=== PATIENT | female | born 1980 | race Caucasian/White ===

== ENCOUNTER 2017-09-04 22:11 | Inpatient (IN) | payer MEDICARE ==
[2017-09-05] MEDS ORDERED: Insulin Regular 300 UNITS/3 ML VIAL ONE (00:35)
[2017-09-05] MEDS ORDERED: diphenhydrAMINE 50 MG/ML VIAL ONE (01:22)
[2017-09-05] MEDS ORDERED: Famotidine/PF 20 mg/2ml Vial ONE (01:22)
[2017-09-05] MEDS ORDERED: Dextrose 50% Abboject 50 ML SYRINGE SLOW IVP PRN ×2 (01:37→05:56)
[2017-09-05] MEDS ORDERED: Dextrose 5% in Water 1,000 ML IV PRN ×2 (01:37→05:56)
--- NOTE | 2017-09-05 02:39 | HP ---
CHIEF COMPLAINT: Throat swelling. HISTORY OF PRESENT ILLNESS: The patient is a 37-year-old female with known angioedema, questionable whether this is idiopathic versus hereditary. The patient presented to outlying ER with throat swell ing. The patient was given some Benadryl and IV steroids at the other facility; however, is complain ing that this is not helping. The patient has had multiple prior attacks and has had trach placement due to this. PAST MEDICAL HISTORY: The patient is significant for angioedema as well as prior CVA, atrial fibrill ation, type 2 diabetes. PAST SURGICAL HISTORY: The patient has had prior MediPort placement, hysterectomy, cholecystectomy, pacemaker placement, cardiac ablation x6, rectal fissure repair, IVC filter placement, appendectomy, tonsillectomy, and trach placement. SOCIAL HISTORY: The patient denied any alcohol or tobacco use. REVIEW OF SYSTEMS: Please see HPI. Rest of 14-point review of systems is negative. LABORATORY AND X-RAY DATA: The patient's CBC, white count is 5.7, H&H 10 and 32 with a platelet of 2 83. PT was 15, INR is 1.2 with PTT of 24. Sodium is 136, potassium 3.8, chloride 103, bicarbonate 1 8, BUN 13, creatinine 1.0. FAMILY HISTORY: Discussed and noncontributory. PHYSICAL EXAMINATION: VITAL SIGNS: Blood pressure 109/66, pulse 62, respirations 16. The patient satting 94% on room air, T-max is 98.6. GENERAL: The patient is awake, alert, and oriented x3, in no acute distress. HEENT: Pupils are equal, round, and react to light and accommodation. Extraocular muscles are intac t. Trach is in place and noted with some edema around the area. CARDIOVASCULAR: Regular rate and rhythm. LUNGS: Clear to auscultation bilaterally. ABDOMEN: Positive bowel sounds. Soft, nontender, nondistended. EXTREMITIES: No clubbing, cyanosis, or edema. NEUROLOGIC: Cranial nerves II-XII are grossly intact. PSYCHIATRIC: The patient is cooperative and answering questions appropriately. ASSESSMENT AND PLAN: 1. Angioedema. We will go ahead and give 2 units FFP as this has worked in the past. Continue to m onitor. We will have the patient in the CCU due to her trach and higher need for care. 2. Type 2 diabetes. Restart outpatient regimen. 3. Chronic pain management. Continue outpatient pain regimen. 4. Code status: The patient is FULL CODE.
[2017-09-05] MEDS ORDERED: Ondansetron HCl/PF 4 MG/2 ML Vial IVP PRN (04:20)
[2017-09-05] MEDS ORDERED: Ondansetron ODT 4 MG TAB SL PRN (04:20)
[2017-09-05] MEDS ORDERED: HumaLOG 300 UNITS/3 ML VIAL SC PRN ×2 (04:27→05:56)
[2017-09-05] MEDS ORDERED: Insulin Regular 300 UNITS/3 ML VIAL SC PRN (04:27)
[2017-09-05 05:02] VITALS: BMI 44.6
[2017-09-05] MEDS ORDERED: ICATIBANT ACETATE 30 MG SC PRN (05:53)
[2017-09-05] MEDS: diphenhydrAMINE 50 MG/ML VIAL IVP SCH ×2 (05:55→11:23)
[2017-09-05] MEDS ORDERED: C1 ESTERASE INHIBITOR IVP SCH (06:00)
[2017-09-05] MEDS ORDERED: [UNRECOGNIZED DRUG - OTHER] IVP SCH (06:00)
[2017-09-05] MEDS: HumaLOG 300 UNITS/3 ML VIAL SC PRN ×4 (07:38→21:15)
[2017-09-05] MEDS: HYDROmorphone 2 MG TAB PO PRN ×4 (07:47→21:20)
[2017-09-05] MEDS: Apixaban 5 MG TAB PO SCH ×2 (08:05→21:14)
[2017-09-05] MEDS: Insulin Detemir 100 UNITS/ML 40 UNITS in Pre-Filled Syringe 1 EACH SC SCH ×2 (08:06→21:14)
[2017-09-05] MEDS: DULoxetine 60 MG CAP PO SCH (08:06)
[2017-09-05] MEDS ORDERED: Non-Formulary Item 1 EACH (Insulin Detemir 100 Units/Ml [Levemir] 40 UNITS) SC SCH (09:00)
[2017-09-05] MEDS ORDERED: Famotidine/PF 20 mg/2ml Vial IVPB SCH (09:00)
[2017-09-05] MEDS: Flecainide 50 MG TAB PO SCH ×2 (09:27→21:14)
--- NOTE | 2017-09-05 12:57 | CON ---
DATE OF CONSULTATION: 09/05/2017 SERVICE: Pulmonary Medicine. REASON FOR CONSULTATION: ICU patient. HISTORY OF PRESENT ILLNESS: The patient is a 37-year-old morbidly obese white female with past medical history significant for some heart problems. Recently , she had a pacemaker that was placed. Unfortunately, previously it has got infected. She has been treated for endocarditis. They had to place the leads through her thoracic cavity to her heart. In her recovery process from that procedure, she went through all of her p.r.n. medications for angioedema and acute exacerbations of the same. As such, she ran out. She is going to be getting her home medications back in about [address], she started feeling like she had increasing fullness in her throat. She denies any current fevers, chills, nausea, or vomiting. She has no shortness of breath. This is characteristic of prior exacerbations of angioedema. I cannot see any significant swelling in that area. That being said, she was tucked into the ICU. She has a tracheostomy in place, because she has had multiple episodes of angioedema. PAST MEDICAL HISTORY: 1. Angioedema. 2. Cerebrovascular accident. 3. Atrial fibrillation. 4. Type 2 diabetes mellitus. PAST SURGICAL HISTORY: 1. MediPort placement. 2. Hysterectomy. 3. Cholecystectomy. 4. Pacemaker placement and redo. 5. Thoracotomy for pacemaker placement leads. 6. Cardiac ablations x6. 7. Rectal fissure repair. 8. IVC filter placement. 9. Appendectomy. 10. Tonsillectomy. 11. Tracheoscopy. SOCIAL HISTORY: Negative for alcohol, tobacco, or illicit drug use. She denies exposure to chemicals, asbestos, or tuberculosis. FAMILY HISTORY: Noncontributory. ALLERGIES: CHRISTIANO INHIBITORS, ASPIRIN, PLAVIX, IODINE, NSAIDs, SULFA, TRAMADOL, SHELLFISH. MEDICATIONS: List of her inpatient medications were reviewed. No specific updates were made at this time. REVIEW OF SYSTEMS: General, head, ears, eyes, nose, throat, cardiovascular, respiratory, GI, , musculoskeletal, neurologic and skin is negative except as stated in the HPI. PHYSICAL EXAMINATION: VITAL SIGNS: Afebrile, pulse 75, blood pressure 110/77, respirations 19, saturation 92% on room air. GENERAL: Patient is awake, alert, in no apparent distress. HEENT: Normocephalic, atraumatic. Sclerae are white. Conjunctivae pink. Oral and nasal mucosa are moist without lesions. There is no evidence of swelling of the soft tissues of the throat or tongue. There is no swelling of the lips. LUNGS: Decent air entry. There is no prolonged expiratory phase or wheezing identified. HEART: Normal rate, regular. ABDOMEN: Soft, nontender, nondistended, bowel sounds positive. MUSCULOSKELETAL: No cyanosis or clubbing. No pitting in the bilateral lower extremities. NEUROLOGIC: Grossly nonfocal. LABORATORY DATA: CBC is stable/unremarkable. Creatinine 1.2. Basic metabolic profile is otherwise unremarkable. IMAGING: Chest x-ray is consistent with cardiomegaly with vascular congestion and small pleural effusions greater on the left side. A tracheostomy tube is in place. Soft tissue attenuation is present. ASSESSMENT: 1. Hereditary angioedema with subjective exacerbation. 2. Status post tracheostomy. 3. Type 2 diabetes mellitus. 4. Chronic pain. DISCUSSION AND PLAN: The patient will be transitioned out of the ICU to the medical floor. She has already gotten 2 units of FFP. From my perspective, she could be considered for discharge from the hospital today. The patient is already suggesting that she may need to stay longer and get additional units of FFP. From my perspective, she has no acute issues currently. Either way, we work towards getting her out of the ICU today. 70 minutes have been devoted to this patient in various activities. I personally reviewed all imaging studies and laboratory data noted within this document. For at least half of this time, I was interacting with the patient at the bedside or coordinating care with the care team. For the remainder of the time I was immediately available to the patient in the hospital unit. YESENIA
[2017-09-05] MEDS ORDERED: DANAZOL PO SCH (17:00)
[2017-09-05] MEDS: DANAZOL PO SCH (17:31)
[2017-09-05] MEDS: clonazePAM 1 MG TAB PO SCH (21:14)
[2017-09-06] MEDS: HYDROmorphone 2 MG TAB PO PRN ×5 (01:23→20:58)
[2017-09-06] MEDS: HumaLOG 300 UNITS/3 ML VIAL SC PRN ×4 (05:20→15:57)
[2017-09-06] MEDS: Insulin Detemir 100 UNITS/ML 40 UNITS in Pre-Filled Syringe 1 EACH SC SCH (08:19)
[2017-09-06] MEDS: Apixaban 5 MG TAB PO SCH ×2 (08:20→20:57)
[2017-09-06] MEDS: Flecainide 50 MG TAB PO SCH ×2 (08:20→20:57)
[2017-09-06] MEDS: DULoxetine 60 MG CAP PO SCH (08:20)
--- NOTE | 2017-09-06 09:07 | PRG ---
DATE OF SERVICE: 09/06/2017 Ms. Emmanuel states that she is experiencing angioedema again. She apparently is on some type of spec ial medication which she is out of and indicates that she should be on fresh frozen plasma and diphen hydramine instead. My history with Ms. Emmanuel goes back many, many years and I have never seen docu mented prove that she has hereditary angioedema, although she says she has the paperwork and can impr ove this to me. She has been intubated so many time that the doctors in [place] ultimately put a tracheostomy in. PHYSICAL EXAMINATION: VITAL SIGNS: O2 sats 94%, temperature 97.8, pulse 83, blood pressure 132/82. HEENT: Unremarkable. NECK: Trach in place. LUNGS: Clear. CARDIAC: S1 and S2 regular. ABDOMEN: Soft. EXTREMITIES: No edema. LABORATORY DATA: Glucose level is greater than 550. ASSESSMENT: Question of hereditary angioedema. RECOMMENDATIONS: I would recommend getting you of her doctor in [place] and initiating whatever tr eatment that they prescribed her. I think that we need records from them to prove what her true diag nosis is.
[2017-09-06 12:18] LABS: Anion Gap 25 mmol/L (10-20); BUN (Urea Nitrogen) 52 mg/dL (7.0-18.7); Calc. Creatinine Clearance 75 mL/min (70-130); Calcium 8.9 mg/dL (7.8-10.44); Carbon Dioxide 16 mmol/L (22-29); Chloride 86 mmol/L (98-107); Estimated GFR-MDRD 22; Potassium 6.5 mmol/L (3.5-5.1); Sodium 120 mmol/L (136-145)
[2017-09-06 12:27] LABS: Glucose 612 mg/dL (70-105)
[2017-09-06 14:08] LABS: Anion Gap 26 mmol/L (10-20); BUN (Urea Nitrogen) 53 mg/dL (7.0-18.7); Calc. Creatinine Clearance 71 mL/min (70-130); Calcium 9.1 mg/dL (7.8-10.44); Carbon Dioxide 12 mmol/L (22-29); Chloride 86 mmol/L (98-107); Estimated GFR-MDRD 21; Potassium 6.1 mmol/L (3.5-5.1)
[2017-09-06 14:13] LABS: Glucose 571 mg/dL (70-105); Sodium 118 mmol/L (136-145)
[2017-09-06] MEDS ORDERED: D5 1/2 NS w/20 mEq KCL 1,000 ML IV PRN (15:11)
[2017-09-06] MEDS ORDERED: Dextrose 5 %-0.45 % NaCl 1,000 ML IV PRN (15:11)
[2017-09-06] MEDS ORDERED: NS 0.9% w/ 20 MEQ KCL 1,000 ML IV PRN ×2 (15:11)
[2017-09-06] MEDS ORDERED: Sodium Chloride 0.9% 1,000 ML IV PRN ×3 (15:11)
[2017-09-06] MEDS ORDERED: CCU Electrolyte Replacement 1 EACH IVPB ONE (15:11)
--- NOTE | 2017-09-06 15:14 | PDOC.PN ---
- Subjective Encounter Start Date: 09/06/17 Encounter Start Time: 15:12 Subjective: Seen and examined not feeling well at all - Objective Resuscitation Status: Resuscitation Status FULL:Full Resuscitation Vital Signs & Weight: Vital Signs (12 hours) Temp Pulse Resp BP Pulse Ox 09/06/17 08:08 97.8 F 83 16 95 09/06/17 07:33 97.8 F 83 16 132/82 94 L Weight Weight 329 lb 5.93 oz Most Recent Monitor Data Heart Rate from ECG 70 NIBP 101/57 NIBP BP-Mean 76 Respiration from ECG 18 SpO2 93 I&O: 09/05/17 09/06/17 09/07/17 06:59 06:59 06:59 Intake Total 120 4030 Output Total 450 1250 Balance -330 2780 Result Diagrams: 09/06/17 13:21 Additional Labs: Accuchecks 09/06/17 09/06/17 09/05/17 09:23 05:21 21:13 POC Glucose Greater than 550 H* Greater than 550 H* 400 H 09/05/17 16:30 POC Glucose 460 H Phys Exam - Physical Examination Constitutional: NAD HEENT: PERRLA, moist MMs, sclera anicteric, TM's clear Neck: no nodes, no JVD, supple, full ROM Respiratory: no wheezing, no rales, no rhonchi, clear to auscultation bilateral Cardiovascular: RRR, no significant murmur, no rub Gastrointestinal: soft, non-tender, no distention, positive bowel sounds Musculoskeletal: no edema, pulses present Dx/Plan (1) DKA (diabetic ketoacidoses) Code(s): E13.10 - OTH DIABETES MELLITUS WITH KETOACIDOSIS WITHOUT COMA Status : Acute (2) Atrial fibrillation Code(s): I48.91 - UNSPECIFIED ATRIAL FIBRILLATION Status: Acute (3) DM type 2 (diabetes mellitus, type 2) Status: Acute (4) Hypertension Code(s): I10 - ESSENTIAL (PRIMARY) HYPERTENSION Status: Acute (5) Hereditary angioedema Code(s): D84.1 - DEFECTS IN THE COMPLEMENT SYSTEM Status: Chronic (6) Hyperkalemia Code(s): E87.5 - HYPERKALEMIA Status: Acute (7) Hyponatremia Code(s): E87.1 - HYPO-OSMOLALITY AND HYPONATREMIA Status: Acute - Plan plan discussed w/ family, PT/OT, social security benefits interviewer Transfer to [facility] -: Initiate DKA protocal treatment * .
[2017-09-06 16:28] LABS: Anion Gap 22 mmol/L (10-20); BUN (Urea Nitrogen) 57 mg/dL (7.0-18.7); Calc. Creatinine Clearance 73 mL/min (70-130); Calcium 9.1 mg/dL (7.8-10.44); Carbon Dioxide 17 mmol/L (22-29); Chloride 86 mmol/L (98-107); Estimated GFR-MDRD 22; Glucose 500 mg/dL (70-105); Potassium 5.3 mmol/L (3.5-5.1); Sodium 120 mmol/L (136-145)
[2017-09-06] MEDS: DANAZOL PO SCH (16:38)
[2017-09-06] MEDS ORDERED: Magnesium Oxide 400 MG TAB PO PRN ×2 (18:32)
[2017-09-06] MEDS ORDERED: CCU ELECTROLYTE REPLACEMENT PROTOCOL FS PRN (18:32)
[2017-09-06] MEDS ORDERED: Potassium Chloride 40 MEQ in Premix Bag 1 BAG IVPB PRN (18:32)
[2017-09-06] MEDS ORDERED: Potassium Chloride 20 MEQ TAB PO PRN (18:32)
[2017-09-06] MEDS ORDERED: Potassium Phosphate 9 MMOL in Sodium Chloride 0.9% 100 ML IVPB PRN (18:32)
[2017-09-06] MEDS ORDERED: Potassium Phosphate 12 MMOL in Sodium Chloride 0.9% 250 ML 250 ML IV PRN (18:32)
[2017-09-06] MEDS ORDERED: Potassium Chloride 40 MEQ in Sodium Chloride 0.9% 250 ML 250 ML IVPB PRN (18:32)
[2017-09-06] MEDS ORDERED: Magnesium 2 GM/NS 0.9% 100 ML 2 GM in Premix Bag 1 BAG IVPB PRN (18:32)
[2017-09-06] MEDS ORDERED: Potassium Phosphate 15 MMOL in Sodium Chloride 0.9% 250 ML 250 ML IV PRN (18:32)
[2017-09-06 19:47] LABS: Anion Gap 21 mmol/L (10-20); BUN (Urea Nitrogen) 58 mg/dL (7.0-18.7); Calc. Creatinine Clearance 73 mL/min (70-130); Carbon Dioxide 18 mmol/L (22-29); Chloride 87 mmol/L (98-107); Estimated GFR-MDRD 22; Glucose 375 mg/dL (70-105); Sodium 121 mmol/L (136-145)
[2017-09-06] MEDS ORDERED: Lorazepam 2 MG/ML VIAL SLOW IVP PRN (20:55)
[2017-09-06] MEDS: clonazePAM 1 MG TAB PO SCH (20:57)
--- NOTE | 2017-09-06 22:25 | PDOC.CNTRL ---
<Chapis Dean - Last Filed: 09/06/17 22:26> Central Line Procedure Note - Procedure Date: 09/06/17 Time: 22:00 - PreProcedure Diagnosis: DKA - PostProcedure Diagnosis: DKA - Description Focused site: internal jugular: Right Ultrasound guidance: Yes Patient tolerated procedure: well Procedure in Details: INDICATION: DKA, need for central IV access PROCEDURE LEGISLATIVE AIDE: Dr. Landon Savage ATTENDING PHYSICIAN: Dr. Pimentel CONSENT: Yes Consent was obtained from the patient prior to the procedure. Indications, risks , and benefits were explained at length. Consult from [facility] physicians for central line placement. PROCEDURE SUMMARY: A time out was performed. My hands were washed immediately prior to the procedure. I wore a surgical cap, mask with protective eyewear, full gown and sterile gloves throughout the procedure. The patient was placed in Trendelenburg position. Right neck was prepped using chlorhexidine scrub and draped in sterile fashion using a three quarter sheet drape and sterile towels. The medial and lateral heads of the sternocleidomastoid muscle were identified as was the carotid pulse. The Internal Jugular vein was identified using the ultrasound. Anesthesia was achieved over the vein using 1% lidocaine. Using real -time out of plane guidance, the introducer needle was inserted into the Internal Jugular vein under direct ultrasound visualization. Venous blood was withdrawn. The syringe was removed and a guidewire was advanced into the introducer needle. The guidewire was visualized in the Internal Jugular Vein by ultrasound. A small incision was made at the skin surface with a scalpel and the introducer needle was exchanged for a dilator over the guidewire. After appropriate dilation was obtained, the dilator was exchanged over the wire for a central venous catheter. The wire was removed and the catheter was sutured in place at 18 cm. A sterile biopatch shield was placed over the catheter at the insertion site. The patient tolerated the procedure without any hemodynamic compromise. At time of procedure completion, all ports aspirated and flushed properly. Post-procedure chest x-ray is pending at this time. Estimated blood loss is 10cc. Dr. Pimentel was present for the entire procedure. <Ed Pimentel - Last Filed: 09/06/17 22:51> Attending Addendum - Attending Addendum I personally evaluated the patient, supervised the procedure, and discussed the management with Dr. Phillips and Dr. Navarrete. I agree with the History, Examination, Assessment and Plan documented above with any addition or exceptions noted below. Post op film reveals the R-IJ central line catheter tip in the IVC. Line ok for use.
[2017-09-06] MEDS ORDERED: tiZANidine HCl 4 MG TAB PO SCH (22:30)
--- NOTE | 2017-09-06 22:53 | RAD ---
PORTABLE CHEST: History: Central line placement. Comparison: 09-04-17 FINDINGS/IMPRESSION: Central line has been placed via the right jugular. Tip overlies the SVC. Tracheostomy device is unch anged. Mild cardiomegaly and mild vascular congestion again noted. No acute interval change. POS: [facility]
[2017-09-06] MEDS: Sodium Chloride 0.9% 1,000 ML IV PRN (22:57)
[2017-09-06 23:39] LABS: Anion Gap 16 mmol/L (10-20); BUN (Urea Nitrogen) 58 mg/dL (7.0-18.7); Calc. Creatinine Clearance 83 mL/min (70-130); Calcium 8.8 mg/dL (7.8-10.44); Carbon Dioxide 20 mmol/L (22-29); Chloride 90 mmol/L (98-107); Estimated GFR-MDRD 25; Glucose 323 mg/dL (70-105); Potassium 4.4 mmol/L (3.5-5.1); Sodium 122 mmol/L (136-145)
[2017-09-07] MEDS: Sodium Chloride 0.9% 1,000 ML IV PRN (03:15)
[2017-09-07] MEDS: HYDROmorphone 2 MG TAB PO PRN ×5 (03:15→20:50)
[2017-09-07] MEDS: Insulin Detemir 100 UNITS/ML 40 UNITS in Pre-Filled Syringe 1 EACH SC SCH ×3 (03:18→20:50)
[2017-09-07 05:35] LABS: Hemoglobin 8.3 g/dL (12.0-16.0); Platelet Count 311 thou/uL (130-400)
[2017-09-07 05:56] LABS: Anion Gap 17 mmol/L (10-20); BUN (Urea Nitrogen) 54 mg/dL (7.0-18.7); Calc. Creatinine Clearance 102 mL/min (70-130); Carbon Dioxide 22 mmol/L (22-29); Chloride 94 mmol/L (98-107); Estimated GFR-MDRD 32; Glucose 65 mg/dL (70-105); Sodium 129 mmol/L (136-145)
--- NOTE | 2017-09-07 08:31 | PRG ---
DATE OF SERVICE: 09/07/2017 The patient was brought down to the IMCU yesterday to initiate an insulin drip for severe hyperglycem ia. That is better today. She is not as raspy as she was yesterday. PHYSICAL EXAMINATION: VITAL SIGNS: Temperature 97.9, pulse 83, respiration 23, O2 sat 93%, blood pressure 143/81. HEENT: Unremarkable. NECK: Trach in good position. LUNGS: Clear. CARDIAC: S1 and S2 regular. ABDOMEN: Soft. EXTREMITIES: Generalized edema throughout. LABORATORY DATA: Sodium 129, potassium 4, chloride 94, CO2 of 22, BUN 54, creatinine 1.8, glucose 65 . ASSESSMENT: 1. Resolved hypoglycemia. 2. Diabetes mellitus. 3. Obesity. 4. Vocal cord dysfunction. 5. Question of hereditary angioedema. PLAN: Stop insulin drip, resume normal insulin dosing. Do not give the patient steroids. Hopefully we can transfer to floor later this afternoon.
[2017-09-07] MEDS: Flecainide 50 MG TAB PO SCH ×2 (09:40→20:49)
[2017-09-07] MEDS: DULoxetine 60 MG CAP PO SCH (09:41)
[2017-09-07] MEDS: Apixaban 5 MG TAB PO SCH ×2 (09:41→20:49)
--- NOTE | 2017-09-07 10:22 | PQF ---
DATE: 09-07-17 ATTN: DR. MECCA EASTON Please exercise your independent, professional judgment in responding to the clarification form. Clinical indicators are provided on the bottom of this form for your review Please check appropriate box(s): [ X] Acute Renal Failure (ARF) / Acute Kidney Injury (CARRILLO) [ ] CKD without ARF/CARRILLO please specify Stage of CKD [ ] Other diagnosis [ ] Unable to determine In addition, please specify: Present on Admission (POA): [ X ] Yes [ ] No [ ] Unable to determine National Kidney Foundation Guidelines for CKD Staging Stage I Kidney damage with normal or increased GFR GFR > 90 Stage II Kidney damage with mildly decreased GFR GFR 60-89 Stage III Kidney damage with moderately decreased GFR GFR 30-59 Stage IV Kidney damage with severely decreased GFR GFR 16-29 Stage V Kidney failure GFR<15 ESRD End Stage Renal Disease On dialysis Acute Renal Failure/Acute Kidney Failure defined as: Increases in SCr by (>) 0.3 mg/dl within 48 hours OR- Increases in SCr by (>) 1.5 times baseline, known or presumed to have occurred within the prior 7 days OR- Urine volume < 0.5 ml/kg/hour for 6 hours (KDIGO supplement 2012 for RIFLE/KALIE criteria) For continuity of documentation, please document condition throughout progress notes and discharge summary. Thank You. CLINICAL INDICATORS - SIGNS / SYMPTOMS / LABS GFR: 09-06-17: 22, 21, 22, 22, 25, 09-07-17: 32 CREATININE: 09-06-17: 2.45 2.57 2.52 2.51 2.21 09-07-17: 1.79 BUN: 09-06-17: 52 53 57 58 58 --18: 54 H&P: ANGIOEDEMA RISK FACTORS: PN -18: DKA, DM 2, HTN, HYPERKALEMIA TREATMENTS: PN -12-17: INITIATE DKA PROTOCOL TREATMENT (MAR) MAGNESIUM IV, PHOSPHORUS, POTASSIUM CHLORIDE BAG, IVF (This form is maintained as a part of the permanent medical record) 2014 [employer] All Rights Reserved RAMOS [email or web address] Office: [phone] [facility] CENTERAnabel
[2017-09-07] MEDS: HumaLOG 300 UNITS/3 ML VIAL SC SCH ×2 (12:10→17:31)
--- NOTE | 2017-09-07 13:57 | PQF ---
DATE: 09-07-17 ATTN: DR. JEAN SINGH Please exercise your independent, professional judgment in responding to the clarification form. Clinical indicators are provided on the bottom of this form for your review Please check appropriate box(es): [ ] Sepsis due to: (Pna, UTI, etc.) [ ] Severe sepsis with acute organ dysfunction of: (Examples: respiratory failure, acute kidney failure, other) [ ] Other diagnosis [ x ] Unable to determine In addition, please specify: Present on Admission (POA): [ ] Yes [ ] No [x ] Unable to determine For continuity of documentation, please document condition throughout progress notes and discharge summary. Thank You. CLINICAL INDICATORS - SIGNS / SYMPTOMS / LABS ER DOCUMENTATION: AMS, SOB, DYSPNEA ER DIAGNOSIS: SEPSIS, CHF, INDETERMINATE TROPONIN, MODERATE BILATERAL PLEURAL EFFUSION, PNEUMONIA, UTI LACTIC ACID: 09-06-17: 3.1, 3.5 WBC: 09-06-17: 15.3, 09-07-17: 14.1 Hyperglycemia in absence of diabetes mellitus: 09-06-17: 229 09-07-17: 138 RISK FACTORS: PN 09-07-17: LACTIC ACIDOSIS, PNEUMONIA , UTI, ADVANCE AGE TREATMENTS: (MAR ) LEVAQUIN, VANCOMYCIN ( ER) SERIES OF LABS (This form is maintained as a part of the permanent medical record) 2014 [employer]. All Rights Reserved [email or web address] Office: [phone] This is not my patient this admission. so send to physician taking care of her. YESENIA
[2017-09-07] MEDS: HumaLOG 300 UNITS/3 ML VIAL SC PRN (14:28)
--- NOTE | 2017-09-07 15:30 | PDOC.PN ---
- Subjective Encounter Start Date: 09/07/17 Encounter Start Time: 15:29 Ms. Emmanuel was seen today in follow-up. She notes some soreness on the left side of her throat, but otherwise OK. She denies any dysonea - Objective Resuscitation Status: Resuscitation Status FULL:Full Resuscitation MAR Reviewed: Yes Vital Signs & Weight: Vital Signs (12 hours) Temp Pulse Resp BP Pulse Ox 09/07/17 11:15 98.8 F 73 20 143/81 H 92 L 09/07/17 08:00 97.9 F 83 20 93 L 09/07/17 07:40 97.9 F 83 20 143/81 H 93 L 09/07/17 04:15 93 L 09/07/17 04:00 99.1 F 74 20 123/80 94 L Weight Weight 347 lb 14.231 oz Most Recent Monitor Data Heart Rate from ECG 70 NIBP 101/57 NIBP BP-Mean 76 Respiration from ECG 18 SpO2 93 I&O: 09/06/17 09/07/17 09/08/17 06:59 06:59 06:59 Intake Total 4030 2700 1515 Output Total 1250 1300 825 Balance 2780 1400 690 Result Diagrams: 09/07/17 04:30 09/07/17 04:30 Additional Labs: Accuchecks 09/07/17 09/07/17 09/07/17 13:54 12:53 12:08 POC Glucose 238 H 222 H 214 H 09/07/17 09/07/17 09/07/17 11:45 11:10 10:03 POC Glucose 180 H 173 H 163 H 09/07/17 09/07/17 09/07/17 09:03 08:02 06:19 POC Glucose 160 H 171 H 143 H 09/07/17 09/07/17 09/07/17 05:18 04:14 03:09 POC Glucose 104 86 137 H 09/07/17 09/07/17 09/07/17 02:05 01:12 00:10 POC Glucose 185 H 224 H 288 H 09/06/17 09/06/17 09/06/17 23:04 20:39 18:44 POC Glucose 347 H 382 H 439 H 09/06/17 09/06/17 15:47 11:17 POC Glucose 493 H Greater than 550 H* Phys Exam - Physical Examination HEENT: PERRLA Respiratory: no wheezing, no rales, wheezing present Cardiovascular: RRR, no significant murmur Gastrointestinal: soft, non-tender, positive bowel sounds Musculoskeletal: no edema Dx/Plan (1) DKA (diabetic ketoacidoses) Code(s): E13.10 - OTH DIABETES MELLITUS WITH KETOACIDOSIS WITHOUT COMA Status : Acute (2) Hyponatremia Code(s): E87.1 - HYPO-OSMOLALITY AND HYPONATREMIA Status: Acute (3) DM type 2 (diabetes mellitus, type 2) Status: Acute (4) Hypertension Code(s): I10 - ESSENTIAL (PRIMARY) HYPERTENSION Status: Acute (5) Hereditary angioedema Code(s): D84.1 - DEFECTS IN THE COMPLEMENT SYSTEM Status: Chronic - Plan * DKA has resolved- she has been placed back on her usual dose of Levemir along with a sliding scale * Hereditary Angioedema- stable- she has been out of her usual medication for this 9 Berinert, but says she is expecting a shipment in later this month * HTN- blood pressure is stable * Hopefully she can be transitioned to the floor, and then home soon.
[2017-09-07] MEDS: DANAZOL PO SCH (17:31)
[2017-09-07] MEDS: clonazePAM 1 MG TAB PO SCH (20:49)
[2017-09-08] MEDS: HYDROmorphone 2 MG TAB PO PRN ×6 (00:59→21:33)
[2017-09-08 06:31] LABS: Anion Gap 12 mmol/L (10-20); BUN (Urea Nitrogen) 27 mg/dL (7.0-18.7); Calc. Creatinine Clearance 163 mL/min (70-130); Calcium 8.7 mg/dL (7.8-10.44); Carbon Dioxide 28 mmol/L (22-29); Chloride 100 mmol/L (98-107); Estimated GFR-MDRD 53; Glucose 135 mg/dL (70-105); Potassium 3.6 mmol/L (3.5-5.1); Sodium 136 mmol/L (136-145)
--- NOTE | 2017-09-08 07:41 | PDOC.PULPN ---
Progress Note: Subj/Obj - Subjective Date: 09/08/17 Time: 07:40 Narrative: Doing well. No complaint - Objective Allergies/Adverse Reactions: Allergies Allergy/AdvReac Type Severity Reaction Status Date / Time CHRISTIANO Inhibitors Allergy Severe Anaphylaxis Verified 11/04/15 12:57 aspirin Allergy Severe Anaphylaxis Verified 11/04/15 12:57 clopidogrel bisulfate Allergy Severe Anaphylaxis Verified 11/04/15 12:57 [From Plavix] iodine Allergy Severe Anaphylaxis Verified 11/04/15 12:57 NSAIDS (Non-Steroidal Allergy Severe Anaphylaxis Verified 11/04/15 12:57 Anti-Inflamma Sulfa (Sulfonamide Allergy Severe Anaphylaxis Verified 11/04/15 12:57 Antibiotics) tramadol Allergy Severe Anaphylaxis Verified 11/04/15 12:57 shellfish derived Allergy Verified 11/04/15 12:57 Medications: Current Medications Apixaban (Eliquis) 5 mg PO BID [facility] Last Admin: 09/07/17 20:49 Dose: 5 mg Cholecalciferol (Vitamin D3) 2,000 units PO DAILY [facility] Last Admin: 09/07/17 09:40 Dose: 2,000 units Clonazepam (Klonopin) 1 mg PO HS [facility] Last Admin: 09/07/17 20:49 Dose: 1 mg Diltiazem HCl (Cardizem Cd) 120 mg PO HS [facility] Last Admin: 09/07/17 20:49 Dose: 120 mg Duloxetine HCl (Cymbalta) 60 mg PO DAILY [facility] Last Admin: 09/07/17 09:41 Dose: 60 mg Flecainide Acetate (Tambocor) 100 mg PO BID [facility] Last Admin: 09/07/17 20:49 Dose: 100 mg Glucagon (Glucagon) 1 mg IM PRN PRN PRN Reason: Hypoglycemia Hydromorphone HCl (Dilaudid) 4 mg PO Q4H PRN PRN Reason: Pain 7-10 Last Admin: 09/08/17 06:07 Dose: 4 mg Insulin Detemir 40 units/ (Miscellaneous Medication) 0.4 mls @ 0 mls/hr SC BID [facility] Last Admin: 09/07/17 20:50 Dose: 0.4 mls Potassium Chloride 40 meq/ (Sodium Chloride) 270 mls @ 135 mls/hr IVPB ASDIR PRN PRN Reason: FOR SERUM K+ 2.5 - 3.5 Potassium Chloride 40 meq/ (Device) 100 mls @ 50 mls/hr IVPB ASDIR PRN PRN Reason: FOR SERUM K+ 2.5 - 3.5 Magnesium Sulfate 1 gm/ Sodium (Chloride) 102 mls @ 102 mls/hr IV PRN PRN PRN Reason: MAG LEVEL 1.4 - 2.0 Magnesium Sulfate 2 gm/ Device 100 mls @ 100 mls/hr IVPB ASDIR PRN PRN Reason: MAGNESIUM < 1.4 Potassium Phosphate 9 mmol/ (Sodium Chloride) 103 mls @ 25.75 mls/hr IVPB ASDIR PRN PRN Reason: Phosphate 1.0-1.8 Potassium Phosphate 12 mmol/ (Sodium Chloride) 254 mls @ 63.5 mls/hr IV ASDIR PRN PRN Reason: Serum phosphate 0.5-0.9 Potassium Phosphate 15 mmol/ (Sodium Chloride) 255 mls @ 63.75 mls/hr IV ASDIR PRN PRN Reason: Serum Phos < 0.5 Insulin Human Lispro (Humalog) 0 units SC .AGGRESSIVE SLIDING PRN; Protocol PRN Reason: AGGRESSIVE SLIDING SCALE Last Admin: 09/07/17 14:28 Dose: 6 unit Insulin Human Lispro (Humalog) 10 units SC [facility] Last Admin: 09/07/17 17:31 Dose: 10 unit Magnesium Oxide (Magnesium Oxide) 400 mg PO BIDPRN PRN PRN Reason: FOR SERUM MAG 1.4 - 2.0 Magnesium Oxide (Magnesium Oxide) 800 mg PO PRN PRN PRN Reason: FOR SERUM MAG < 1.4 Miscellaneous Medication (Phos-Nak) 1 pkt PO TIDPRN PRN PRN Reason: FOR PHOS LEVEL 1.0 - 1.8 Miscellaneous Medication (Phos-Nak) 2 pkt PO TIDPRN PRN PRN Reason: FOR PHOS LEVEL 0.5 - 1.0 Non-Formulary Medication (C1 Esterase Inhibitor (Human) [Berinert]) 20 iu/kg IVP ONE [facility] Stop: 09/05/17 06:01 Non-Formulary Medication (Icatibant Acetate [Firazyr]) 30 mg SC ASDIR PRN PRN Reason: swelling Ccu Electrolyte (Replacement Protocol) 0 each FS PRN PRN PRN Reason: FOR ELECTROLYTE REPLACEMENT Pantoprazole Sodium (Protonix) 40 mg PO BID [facility] Last Admin: 09/07/17 20:49 Dose: 40 mg Danazol [Danazol] 50 (Mg) 0 each PO 1700 [facility] Last Admin: 09/07/17 17:31 Dose: 1 each Potassium Chloride (K-Dur) 40 meq PO ASDIR PRN PRN Reason: FOR SERUM K+ 2.5 - 3.5 Potassium Chloride (Klor-Con) 40 meq PER TUBE ASDIR PRN PRN Reason: FOR SERUM K+ 2.5-3.5 Quetiapine Fumarate (Seroquel) 100 mg PO HS [facility] Last Admin: 09/07/17 20:49 Dose: 100 mg MAR Reviewed: Yes Vital Signs: Vital Signs Temp 97.2 F L 09/08/17 07:32 Pulse 65 09/08/17 07:32 Resp 20 09/08/17 07:32 BP 159/72 H 09/08/17 07:32 Pulse Ox 92 L 09/08/17 07:32 Intake & Output 09/07/17 09/08/17 09/08/17 18:59 06:59 18:59 Intake Total 2150 240 Output Total 825 Balance 1325 240 Weight 337 lb 4.916 oz Intake: Intake, IV Amount 500 Oral 1070 240 Other 580 Output: Urine 825 Other: Voiding Method Bedside Commode Bedside Commode # Unmeasured Voids 1 1 # Bowel Movements 1 Progress Note: Exam - Physical Exam Constitutional: NAD HEENT: PERRLA Neck: no JVD Deviation from normal: trach position OK Cardiovascular: RRR Respiratory: clear to auscultation bilaterally Progress Note: Data - Labs Result Diagrams: 09/07/17 04:30 09/08/17 05:55 Lab results: Laboratory Results 09/06/17 09/06/17 09/06/17 09:23 11:17 11:52 Hgb Hct Plt Count Sodium 120 L Potassium 6.5 H Chloride 86 L Carbon Dioxide 16 L Anion Gap 25 H BUN 52 H Creatinine 2.45 H Estimated GFR (MDRD) 22 Glucose 612 H* POC Glucose Greater than 550 H* Greater than 550 H* Calcium 8.9 09/06/17 09/06/17 09/06/17 13:21 15:47 15:58 Hgb Hct Plt Count Sodium 118 L* 120 L Potassium 6.1 H 5.3 H Chloride 86 L 86 L Carbon Dioxide 12 L 17 L Anion Gap 26 H 22 H BUN 53 H 57 H Creatinine 2.57 H 2.52 H Estimated GFR (MDRD) 21 22 Glucose 571 H* 500 H POC Glucose 493 H Calcium 9.1 9.1 09/06/17 09/06/17 09/06/17 18:44 19:19 20:39 Hgb Hct Plt Count Sodium 121 L Potassium 5.0 Chloride 87 L Carbon Dioxide 18 L Anion Gap 21 H BUN 58 H Creatinine 2.51 H Estimated GFR (MDRD) 22 Glucose 375 H POC Glucose 439 H 382 H Calcium 9.0 09/06/17 09/06/17 09/07/17 23:04 23:18 00:10 Hgb Hct Plt Count Sodium 122 L Potassium 4.4 Chloride 90 L Carbon Dioxide 20 L Anion Gap 16 BUN 58 H Creatinine 2.21 H Estimated GFR (MDRD) 25 Glucose 323 H POC Glucose 347 H 288 H Calcium 8.8 09/07/17 09/07/17 09/07/17 01:12 02:05 03:09 Hgb Hct Plt Count Sodium Potassium Chloride Carbon Dioxide Anion Gap BUN Creatinine Estimated GFR (MDRD) Glucose POC Glucose 224 H 185 H 137 H Calcium 09/07/17 09/07/17 09/07/17 04:14 04:30 04:30 Hgb 8.3 L Hct 26.6 L Plt Count 311 Sodium 129 L Potassium 4.0 Chloride 94 L Carbon Dioxide 22 Anion Gap 17 BUN 54 H Creatinine 1.79 H Estimated GFR (MDRD) 32 Glucose 65 L POC Glucose 86 Calcium 9.0 09/07/17 09/07/17 09/07/17 05:18 06:19 08:02 Hgb Hct Plt Count Sodium Potassium Chloride Carbon Dioxide Anion Gap BUN Creatinine Estimated GFR (MDRD) Glucose POC Glucose 104 143 H 171 H Calcium 09/07/17 09/07/17 09/07/17 09:03 10:03 11:10 Hgb Hct Plt Count Sodium Potassium Chloride Carbon Dioxide Anion Gap BUN Creatinine Estimated GFR (MDRD) Glucose POC Glucose 160 H 163 H 173 H Calcium 09/07/17 09/07/17 09/07/17 11:45 12:08 12:53 Hgb Hct Plt Count Sodium Potassium Chloride Carbon Dioxide Anion Gap BUN Creatinine Estimated GFR (MDRD) Glucose POC Glucose 180 H 214 H 222 H Calcium 09/07/17 09/07/17 09/07/17 13:54 15:34 16:48 Hgb Hct Plt Count Sodium Potassium Chloride Carbon Dioxide Anion Gap BUN Creatinine Estimated GFR (MDRD) Glucose POC Glucose 238 H 170 H 168 H Calcium 09/07/17 09/08/17 09/08/17 20:49 05:55 06:01 Hgb Hct Plt Count Sodium 136 Potassium 3.6 Chloride 100 Carbon Dioxide 28 Anion Gap 12 BUN 27 H Creatinine 1.15 H Estimated GFR (MDRD) 53 Glucose 135 H POC Glucose 185 H 143 H Calcium 8.7 Progress Note: A/P - Problems (1) DM type 2 (diabetes mellitus, type 2) Current Visit: No Status: Acute (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
[2017-09-08] MEDS: HumaLOG 300 UNITS/3 ML VIAL SC SCH ×3 (08:49→17:45)
[2017-09-08] MEDS: Insulin Detemir 100 UNITS/ML 40 UNITS in Pre-Filled Syringe 1 EACH SC SCH ×2 (08:49→21:35)
[2017-09-08] MEDS: Flecainide 50 MG TAB PO SCH ×2 (08:50→21:33)
[2017-09-08] MEDS: Apixaban 5 MG TAB PO SCH ×2 (08:50→21:33)
[2017-09-08] MEDS: DULoxetine 60 MG CAP PO SCH (08:50)
[2017-09-08] MEDS: HumaLOG 300 UNITS/3 ML VIAL SC PRN (11:24)
--- NOTE | 2017-09-08 13:01 | PDOC.PN ---
- Subjective Encounter Start Date: 09/08/17 Encounter Start Time: 12:59 Ms. Emmanuel was seen in follow-up. She is complaining of abdominal pain. She is afraid that she may need some FFP later. - Objective Resuscitation Status: Resuscitation Status FULL:Full Resuscitation MAR Reviewed: Yes Vital Signs & Weight: Vital Signs (12 hours) Temp Pulse Resp BP BP Pulse Ox 09/08/17 11:41 97.1 F L 67 21 H 156/77 H 91 L 09/08/17 08:00 97.2 F L 65 20 92 L 09/08/17 07:32 97.2 F L 65 20 159/72 H 92 L 09/08/17 04:25 97.5 F L 60 18 141/75 H 96 Weight Weight 337 lb 4.916 oz Most Recent Monitor Data Heart Rate from ECG 70 NIBP 101/57 NIBP BP-Mean 76 Respiration from ECG 18 SpO2 93 I&O: 09/07/17 09/08/17 09/09/17 06:59 06:59 06:59 Intake Total 2700 2390 Output Total 1300 825 Balance 1400 1565 Result Diagrams: 09/07/17 04:30 09/08/17 05:55 Additional Labs: Accuchecks 09/08/17 09/08/17 09/07/17 11:23 06:01 20:49 POC Glucose 253 H 143 H 185 H 09/07/17 09/07/17 09/07/17 16:48 15:34 13:54 POC Glucose 168 H 170 H 238 H 09/07/17 12:53 POC Glucose 222 H Phys Exam - Physical Examination HEENT: PERRLA Respiratory: no wheezing, no rales, no rhonchi, clear to auscultation bilateral Cardiovascular: RRR, no significant murmur, no rub Gastrointestinal: soft + diffuse tenderness no rebound or guarding Musculoskeletal: edema present Dx/Plan (1) DKA (diabetic ketoacidoses) Code(s): E13.10 - OTH DIABETES MELLITUS WITH KETOACIDOSIS WITHOUT COMA Status : Acute (2) Hyponatremia Code(s): E87.1 - HYPO-OSMOLALITY AND HYPONATREMIA Status: Acute (3) DM type 2 (diabetes mellitus, type 2) Status: Acute (4) Hypertension Code(s): I10 - ESSENTIAL (PRIMARY) HYPERTENSION Status: Acute (5) Hereditary angioedema Code(s): D84.1 - DEFECTS IN THE COMPLEMENT SYSTEM Status: Chronic - Plan * Hereditary Angioedema- continue to monitor * DKA- resolved * HTN- blood pressure is slightly elevated, will continue her current medications ( Cardizem ) * AFIB- heart rate is stable- she is on Eliquis for stroke prevention * Hopefully home tomorrow.
[2017-09-08] MEDS: DANAZOL PO SCH (17:43)
[2017-09-08] MEDS: clonazePAM 1 MG TAB PO SCH (21:33)
[2017-09-09] MEDS: HYDROmorphone 2 MG TAB PO PRN ×6 (01:43→22:01)
[2017-09-09 05:39] LABS: Hemoglobin 7.8 g/dL (12.0-16.0); Platelet Count 268 thou/uL (130-400)
[2017-09-09 06:01] LABS: Anion Gap 16 mmol/L (10-20); BUN (Urea Nitrogen) 15 mg/dL (7.0-18.7); Calc. Creatinine Clearance 168 mL/min (70-130); Calcium 8.5 mg/dL (7.8-10.44); Carbon Dioxide 26 mmol/L (22-29); Chloride 99 mmol/L (98-107); Estimated GFR-MDRD 55; Glucose 235 mg/dL (70-105); Potassium 3.7 mmol/L (3.5-5.1); Sodium 137 mmol/L (136-145)
--- NOTE | 2017-09-09 07:42 | PDOC.PULPN ---
Progress Note: Subj/Obj - Subjective Date: 09/09/17 Time: 07:41 Narrative: No complaints. Wants to go home - Objective Allergies/Adverse Reactions: Allergies Allergy/AdvReac Type Severity Reaction Status Date / Time CHRISTIANO Inhibitors Allergy Severe Anaphylaxis Verified 11/04/15 12:57 aspirin Allergy Severe Anaphylaxis Verified 11/04/15 12:57 clopidogrel bisulfate Allergy Severe Anaphylaxis Verified 11/04/15 12:57 [From Plavix] iodine Allergy Severe Anaphylaxis Verified 11/04/15 12:57 NSAIDS (Non-Steroidal Allergy Severe Anaphylaxis Verified 11/04/15 12:57 Anti-Inflamma Sulfa (Sulfonamide Allergy Severe Anaphylaxis Verified 11/04/15 12:57 Antibiotics) tramadol Allergy Severe Anaphylaxis Verified 11/04/15 12:57 shellfish derived Allergy Verified 11/04/15 12:57 Medications: Current Medications Apixaban (Eliquis) 5 mg PO BID [facility] Last Admin: 09/08/17 21:33 Dose: 5 mg Cholecalciferol (Vitamin D3) 2,000 units PO DAILY [facility] Last Admin: 09/08/17 08:50 Dose: 2,000 units Clonazepam (Klonopin) 1 mg PO HS [facility] Last Admin: 09/08/17 21:33 Dose: 1 mg Diltiazem HCl (Cardizem Cd) 120 mg PO HS [facility] Last Admin: 09/08/17 21:33 Dose: 120 mg Duloxetine HCl (Cymbalta) 60 mg PO DAILY [facility] Last Admin: 09/08/17 08:50 Dose: 60 mg Flecainide Acetate (Tambocor) 100 mg PO BID [facility] Last Admin: 09/08/17 21:33 Dose: 100 mg Glucagon (Glucagon) 1 mg IM PRN PRN PRN Reason: Hypoglycemia Hydromorphone HCl (Dilaudid) 4 mg PO Q4H PRN PRN Reason: Pain 7-10 Last Admin: 09/09/17 05:51 Dose: 4 mg Insulin Detemir 40 units/ (Miscellaneous Medication) 0.4 mls @ 0 mls/hr SC BID [facility] Last Admin: 09/08/17 21:35 Dose: Not Given Potassium Chloride 40 meq/ (Sodium Chloride) 270 mls @ 135 mls/hr IVPB ASDIR PRN PRN Reason: FOR SERUM K+ 2.5 - 3.5 Potassium Chloride 40 meq/ (Device) 100 mls @ 50 mls/hr IVPB ASDIR PRN PRN Reason: FOR SERUM K+ 2.5 - 3.5 Magnesium Sulfate 1 gm/ Sodium (Chloride) 102 mls @ 102 mls/hr IV PRN PRN PRN Reason: MAG LEVEL 1.4 - 2.0 Magnesium Sulfate 2 gm/ Device 100 mls @ 100 mls/hr IVPB ASDIR PRN PRN Reason: MAGNESIUM < 1.4 Potassium Phosphate 9 mmol/ (Sodium Chloride) 103 mls @ 25.75 mls/hr IVPB ASDIR PRN PRN Reason: Phosphate 1.0-1.8 Potassium Phosphate 12 mmol/ (Sodium Chloride) 254 mls @ 63.5 mls/hr IV ASDIR PRN PRN Reason: Serum phosphate 0.5-0.9 Potassium Phosphate 15 mmol/ (Sodium Chloride) 255 mls @ 63.75 mls/hr IV ASDIR PRN PRN Reason: Serum Phos < 0.5 Insulin Human Lispro (Humalog) 0 units SC .AGGRESSIVE SLIDING PRN; Protocol PRN Reason: AGGRESSIVE SLIDING SCALE Last Admin: 09/08/17 11:24 Dose: 9 unit Insulin Human Lispro (Humalog) 10 units SC [facility] Last Admin: 09/08/17 17:45 Dose: 10 unit Magnesium Oxide (Magnesium Oxide) 400 mg PO BIDPRN PRN PRN Reason: FOR SERUM MAG 1.4 - 2.0 Magnesium Oxide (Magnesium Oxide) 800 mg PO PRN PRN PRN Reason: FOR SERUM MAG < 1.4 Miscellaneous Medication (Phos-Nak) 1 pkt PO TIDPRN PRN PRN Reason: FOR PHOS LEVEL 1.0 - 1.8 Miscellaneous Medication (Phos-Nak) 2 pkt PO TIDPRN PRN PRN Reason: FOR PHOS LEVEL 0.5 - 1.0 Non-Formulary Medication (C1 Esterase Inhibitor (Human) [Berinert]) 20 iu/kg IVP ONE [facility] Stop: 09/05/17 06:01 Non-Formulary Medication (Icatibant Acetate [Firazyr]) 30 mg SC ASDIR PRN PRN Reason: swelling Ccu Electrolyte (Replacement Protocol) 0 each FS PRN PRN PRN Reason: FOR ELECTROLYTE REPLACEMENT Pantoprazole Sodium (Protonix) 40 mg PO BID [facility] Last Admin: 09/08/17 21:33 Dose: 40 mg Danazol [Danazol] 50 (Mg) 0 each PO 1700 [facility] Last Admin: 09/08/17 17:43 Dose: 1 each Potassium Chloride (K-Dur) 40 meq PO ASDIR PRN PRN Reason: FOR SERUM K+ 2.5 - 3.5 Potassium Chloride (Klor-Con) 40 meq PER TUBE ASDIR PRN PRN Reason: FOR SERUM K+ 2.5-3.5 Quetiapine Fumarate (Seroquel) 100 mg PO HS [facility] Last Admin: 09/08/17 21:33 Dose: 100 mg MAR Reviewed: Yes Vital Signs: Vital Signs Temp 97.2 F L 09/09/17 04:35 Pulse 116 H 09/09/17 04:35 Resp 16 09/09/17 04:35 BP 126/62 09/09/17 04:35 Pulse Ox 92 L 09/09/17 04:35 Intake & Output 09/08/17 09/09/17 09/09/17 18:59 06:59 18:59 Intake Total 700 Balance 700 Intake: Oral 700 Other: Voiding Method Bedside Commode Bedside Commode # Unmeasured Voids 1 Progress Note: Exam - Physical Exam Constitutional: NAD HEENT: PERRLA Neck: no nodes, no JVD Deviation from normal: trach OK Cardiovascular: RRR Respiratory: clear to auscultation bilaterally Gastrointestinal: soft, non-tender Musculoskeletal: no edema Neurological: non-focal Psychiatric: normal affect, A&O x 3 Skin: no rash Progress Note: Data - Labs Result Diagrams: 09/09/17 05:29 09/09/17 05:29 Lab results: Laboratory Results 09/07/17 09/07/17 09/07/17 08:02 09:03 10:03 Hgb Hct Plt Count Sodium Potassium Chloride Carbon Dioxide Anion Gap BUN Creatinine Estimated GFR (MDRD) Glucose POC Glucose 171 H 160 H 163 H Calcium 09/07/17 09/07/17 09/07/17 11:10 11:45 12:08 Hgb Hct Plt Count Sodium Potassium Chloride Carbon Dioxide Anion Gap BUN Creatinine Estimated GFR (MDRD) Glucose POC Glucose 173 H 180 H 214 H Calcium 09/07/17 09/07/17 09/07/17 12:53 13:54 15:34 Hgb Hct Plt Count Sodium Potassium Chloride Carbon Dioxide Anion Gap BUN Creatinine Estimated GFR (MDRD) Glucose POC Glucose 222 H 238 H 170 H Calcium 09/07/17 09/07/17 09/08/17 16:48 20:49 05:55 Hgb Hct Plt Count Sodium 136 Potassium 3.6 Chloride 100 Carbon Dioxide 28 Anion Gap 12 BUN 27 H Creatinine 1.15 H Estimated GFR (MDRD) 53 Glucose 135 H POC Glucose 168 H 185 H Calcium 8.7 09/08/17 09/08/17 09/08/17 06:01 11:23 16:18 Hgb Hct Plt Count Sodium Potassium Chloride Carbon Dioxide Anion Gap BUN Creatinine Estimated GFR (MDRD) Glucose POC Glucose 143 H 253 H 110 Calcium 09/08/17 09/09/17 09/09/17 20:34 05:29 05:29 Hgb 7.8 L Hct 25.9 L Plt Count 268 Sodium 137 Potassium 3.7 Chloride 99 Carbon Dioxide 26 Anion Gap 16 BUN 15 Creatinine 1.12 H Estimated GFR (MDRD) 55 Glucose 235 H POC Glucose 87 Calcium 8.5 09/09/17 05:44 Hgb Hct Plt Count Sodium Potassium Chloride Carbon Dioxide Anion Gap BUN Creatinine Estimated GFR (MDRD) Glucose POC Glucose 232 H Calcium Progress Note: A/P - Problems (1) DM type 2 (diabetes mellitus, type 2) Current Visit: No Status: Acute (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 No further recs
[2017-09-09] MEDS: HumaLOG 300 UNITS/3 ML VIAL SC SCH ×3 (08:25→17:00)
[2017-09-09] MEDS: Insulin Detemir 100 UNITS/ML 40 UNITS in Pre-Filled Syringe 1 EACH SC SCH ×2 (08:25→22:00)
[2017-09-09] MEDS: Flecainide 50 MG TAB PO SCH ×2 (08:27→21:59)
[2017-09-09] MEDS: DULoxetine 60 MG CAP PO SCH (08:27)
[2017-09-09] MEDS: Apixaban 5 MG TAB PO SCH ×2 (08:27→22:00)
--- NOTE | 2017-09-09 09:56 | PDOC.PN ---
- Subjective Encounter Start Date: 09/09/17 Encounter Start Time: 09:54 Ms. Emmanuel says she wants to go home, but she still feels like her abdomen is tight, and sore, and she is afraid that it will move up to her throat. - Objective Resuscitation Status: Resuscitation Status FULL:Full Resuscitation MAR Reviewed: Yes Vital Signs & Weight: Vital Signs (12 hours) Temp Pulse Resp BP BP Pulse Ox 09/09/17 08:00 98.4 F 95 14 100 09/09/17 07:00 98.4 F 95 14 166/111 H 95 09/09/17 04:35 97.2 F L 116 H 16 126/62 92 L 09/09/17 00:35 97.9 F 76 24 H 125/63 96 Weight Weight 337 lb 4.916 oz Most Recent Monitor Data Heart Rate from ECG 70 NIBP 101/57 NIBP BP-Mean 76 Respiration from ECG 18 SpO2 93 I&O: 09/08/17 09/09/17 09/10/17 06:59 06:59 06:59 Intake Total 2390 700 Output Total 825 Balance 1565 700 Result Diagrams: 09/09/17 05:29 09/09/17 05:29 Additional Labs: Accuchecks 09/09/17 09/08/17 09/08/17 05:44 20:34 16:18 POC Glucose 232 H 87 110 09/08/17 11:23 POC Glucose 253 H Phys Exam - Physical Examination HEENT: PERRLA, oral pharynx no lesions Respiratory: no wheezing, no rales, no rhonchi, clear to auscultation bilateral Cardiovascular: RRR, no significant murmur, no rub Gastrointestinal: soft + abdominal firmness Musculoskeletal: edema present + non-pitting edema Dx/Plan (1) DKA (diabetic ketoacidoses) Code(s): E13.10 - OTH DIABETES MELLITUS WITH KETOACIDOSIS WITHOUT COMA Status : Acute (2) Hyponatremia Code(s): E87.1 - HYPO-OSMOLALITY AND HYPONATREMIA Status: Acute (3) DM type 2 (diabetes mellitus, type 2) Status: Acute (4) Hypertension Code(s): I10 - ESSENTIAL (PRIMARY) HYPERTENSION Status: Acute (5) Hereditary angioedema Code(s): D84.1 - DEFECTS IN THE COMPLEMENT SYSTEM Status: Chronic (6) Acute on chronic kidney failure Code(s): N17.9 - ACUTE KIDNEY FAILURE, UNSPECIFIED; N18.9 - CHRONIC KIDNEY DISEASE, UNSPECIFIED Status: Acute (7) Atrial fibrillation Code(s): I48.91 - UNSPECIFIED ATRIAL FIBRILLATION Status: Acute - Plan * Hereditary Angioedema- slowly improving * DKA- resolved * Acute on chronic kidney disease- much improved * DM- blood glucose is stable * AFIB- heart rate is stable, on Eliquis and Cardizem * Anemia- discussed with patient she states that she has a history of Anemia in the past, and required IV iron. She is not symptomatic from this, and can follow -up with her primary care Provider as an Outpatient * Will give 2 units of FFP, and then home.
[2017-09-09] MEDS ORDERED: diphenhydrAMINE 25 MG CAP PO PRN (14:29)
[2017-09-09] MEDS: DANAZOL PO SCH (16:59)
[2017-09-09] MEDS: clonazePAM 1 MG TAB PO SCH (22:00)
[2017-09-10] MEDS: HYDROmorphone 2 MG TAB PO PRN ×3 (04:07→12:52)
[2017-09-10 06:17] LABS: Chloride 101 mmol/L (98-107); Potassium 3.9 mmol/L (3.5-5.1); Sodium 139 mmol/L (136-145)
[2017-09-10 06:18] LABS: Calcium 8.8 mg/dL (7.8-10.44); Glucose 148 mg/dL (70-105)
[2017-09-10 06:20] LABS: Anion Gap 13 mmol/L (10-20); Carbon Dioxide 29 mmol/L (22-29)
[2017-09-10 06:22] LABS: BUN (Urea Nitrogen) 9 mg/dL (7.0-18.7); Calc. Creatinine Clearance 184 mL/min (70-130); Estimated GFR-MDRD 61
--- NOTE | 2017-09-10 08:12 | PDOC.PULPN ---
Progress Note: Subj/Obj - Subjective Date: 09/10/17 Time: 08:10 Narrative: Says she had "angioedema" yesterday - ROS All systems: reviewed and no additional remarkable complaints except as stated - Objective Allergies/Adverse Reactions: Allergies Allergy/AdvReac Type Severity Reaction Status Date / Time CHRISTIANO Inhibitors Allergy Severe Anaphylaxis Verified 11/04/15 12:57 aspirin Allergy Severe Anaphylaxis Verified 11/04/15 12:57 clopidogrel bisulfate Allergy Severe Anaphylaxis Verified 11/04/15 12:57 [From Plavix] iodine Allergy Severe Anaphylaxis Verified 11/04/15 12:57 NSAIDS (Non-Steroidal Allergy Severe Anaphylaxis Verified 11/04/15 12:57 Anti-Inflamma Sulfa (Sulfonamide Allergy Severe Anaphylaxis Verified 11/04/15 12:57 Antibiotics) tramadol Allergy Severe Anaphylaxis Verified 11/04/15 12:57 shellfish derived Allergy Verified 11/04/15 12:57 Medications: Current Medications Apixaban (Eliquis) 5 mg PO BID [facility] Last Admin: 09/09/17 22:00 Dose: 5 mg Cholecalciferol (Vitamin D3) 2,000 units PO DAILY [facility] Last Admin: 09/09/17 08:27 Dose: 2,000 units Clonazepam (Klonopin) 1 mg PO HS [facility] Last Admin: 09/09/17 22:00 Dose: 1 mg Diltiazem HCl (Cardizem Cd) 120 mg PO HS [facility] Last Admin: 09/09/17 21:59 Dose: 120 mg Diphenhydramine HCl (Benadryl) 25 mg PO Q6H PRN PRN Reason: Itching & Insomnia Last Admin: 09/09/17 14:38 Dose: 25 mg Duloxetine HCl (Cymbalta) 60 mg PO DAILY [facility] Last Admin: 09/09/17 08:27 Dose: 60 mg Flecainide Acetate (Tambocor) 100 mg PO BID [facility] Last Admin: 09/09/17 21:59 Dose: 100 mg Glucagon (Glucagon) 1 mg IM PRN PRN PRN Reason: Hypoglycemia Hydromorphone HCl (Dilaudid) 4 mg PO Q4H PRN PRN Reason: Pain 7-10 Last Admin: 09/10/17 04:07 Dose: 4 mg Insulin Detemir 40 units/ (Miscellaneous Medication) 0.4 mls @ 0 mls/hr SC BID [facility] Last Admin: 09/09/17 22:00 Dose: 0.4 mls Potassium Chloride 40 meq/ (Sodium Chloride) 270 mls @ 135 mls/hr IVPB ASDIR PRN PRN Reason: FOR SERUM K+ 2.5 - 3.5 Potassium Chloride 40 meq/ (Device) 100 mls @ 50 mls/hr IVPB ASDIR PRN PRN Reason: FOR SERUM K+ 2.5 - 3.5 Magnesium Sulfate 1 gm/ Sodium (Chloride) 102 mls @ 102 mls/hr IV PRN PRN PRN Reason: MAG LEVEL 1.4 - 2.0 Magnesium Sulfate 2 gm/ Device 100 mls @ 100 mls/hr IVPB ASDIR PRN PRN Reason: MAGNESIUM < 1.4 Potassium Phosphate 9 mmol/ (Sodium Chloride) 103 mls @ 25.75 mls/hr IVPB ASDIR PRN PRN Reason: Phosphate 1.0-1.8 Potassium Phosphate 12 mmol/ (Sodium Chloride) 254 mls @ 63.5 mls/hr IV ASDIR PRN PRN Reason: Serum phosphate 0.5-0.9 Potassium Phosphate 15 mmol/ (Sodium Chloride) 255 mls @ 63.75 mls/hr IV ASDIR PRN PRN Reason: Serum Phos < 0.5 Insulin Human Lispro (Humalog) 0 units SC .AGGRESSIVE SLIDING PRN; Protocol PRN Reason: AGGRESSIVE SLIDING SCALE Last Admin: 09/08/17 11:24 Dose: 9 unit Insulin Human Lispro (Humalog) 10 units SC AC [facility] Last Admin: 09/09/17 17:00 Dose: Not Given Magnesium Oxide (Magnesium Oxide) 400 mg PO BIDPRN PRN PRN Reason: FOR SERUM MAG 1.4 - 2.0 Magnesium Oxide (Magnesium Oxide) 800 mg PO PRN PRN PRN Reason: FOR SERUM MAG < 1.4 Miscellaneous Medication (Phos-Nak) 1 pkt PO TIDPRN PRN PRN Reason: FOR PHOS LEVEL 1.0 - 1.8 Miscellaneous Medication (Phos-Nak) 2 pkt PO TIDPRN PRN PRN Reason: FOR PHOS LEVEL 0.5 - 1.0 Non-Formulary Medication (C1 Esterase Inhibitor (Human) [Berinert]) 20 iu/kg IVP ONE [facility] Stop: 09/05/17 06:01 Non-Formulary Medication (Icatibant Acetate [Firazyr]) 30 mg SC ASDIR PRN PRN Reason: swelling Ccu Electrolyte (Replacement Protocol) 0 each FS PRN PRN PRN Reason: FOR ELECTROLYTE REPLACEMENT Pantoprazole Sodium (Protonix) 40 mg PO BID [facility] Last Admin: 09/09/17 21:59 Dose: 40 mg Danazol [Danazol] 50 (Mg) 0 each PO 1700 [facility] Last Admin: 09/09/17 16:59 Dose: 1 each Potassium Chloride (K-Dur) 40 meq PO ASDIR PRN PRN Reason: FOR SERUM K+ 2.5 - 3.5 Potassium Chloride (Klor-Con) 40 meq PER TUBE ASDIR PRN PRN Reason: FOR SERUM K+ 2.5-3.5 Quetiapine Fumarate (Seroquel) 100 mg PO HS [facility] Last Admin: 09/09/17 22:00 Dose: 100 mg Sodium Chloride (Flush - Normal Saline) 10 ml IVF PRN PRN PRN Reason: Saline Flush MAR Reviewed: Yes Vital Signs: Vital Signs Temp 98.9 F 09/10/17 04:07 Pulse 65 09/10/17 04:07 Resp 18 09/10/17 04:07 BP 126/79 09/10/17 04:07 Pulse Ox 99 09/10/17 04:07 Intake & Output 09/09/17 09/10/17 09/10/17 18:59 06:59 18:59 Intake Total 1572 810 Output Total 1500 Balance 72 810 Intake: Intake, IV Amount 482 10 Oral 850 800 Blood Product 240 Thawed Ffp Unit 240 [id number] Output: Urine 1500 Other: Voiding Method Bedside Commode Bedside Commode # Unmeasured Voids 1 # Bowel Movements 2 Progress Note: Exam - Physical Exam Constitutional: NAD HEENT: PERRLA Neck: no nodes, no JVD Cardiovascular: RRR Respiratory: clear to auscultation bilaterally Gastrointestinal: soft, non-tender Neurological: non-focal Lymphatic: no nodes Psychiatric: normal affect, A&O x 3 Skin: no rash Progress Note: Data - Labs Result Diagrams: 09/09/17 05:29 09/10/17 05:35 Lab results: Laboratory Results 09/08/17 09/08/17 09/08/17 11:23 16:18 20:34 Hgb Hct Plt Count Sodium Potassium Chloride Carbon Dioxide Anion Gap BUN Creatinine Estimated GFR (MDRD) Glucose POC Glucose 253 H 110 87 Calcium Blood Type Antibody Screen 09/09/17 09/09/17 09/09/17 05:29 05:29 05:44 Hgb 7.8 L Hct 25.9 L Plt Count 268 Sodium 137 Potassium 3.7 Chloride 99 Carbon Dioxide 26 Anion Gap 16 BUN 15 Creatinine 1.12 H Estimated GFR (MDRD) 55 Glucose 235 H POC Glucose 232 H Calcium 8.5 Blood Type Antibody Screen 09/09/17 09/09/17 09/09/17 10:16 10:43 16:26 Hgb Hct Plt Count Sodium Potassium Chloride Carbon Dioxide Anion Gap BUN Creatinine Estimated GFR (MDRD) Glucose POC Glucose 222 H 115 H Calcium Blood Type O POSITIVE Antibody Screen NEGATIVE 09/09/17 09/10/17 09/10/17 21:59 05:35 05:59 Hgb Hct Plt Count Sodium 139 Potassium 3.9 Chloride 101 Carbon Dioxide 29 Anion Gap 13 BUN 9 Creatinine 1.02 Estimated GFR (MDRD) 61 Glucose 148 H POC Glucose 125 H 159 H Calcium 8.8 Blood Type Antibody Screen Progress Note: A/P - Problems (1) DM type 2 (diabetes mellitus, type 2) Current Visit: No Status: Acute (2) 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 I would advise communication with the doctor in [place] that is managing her "HAE", to see if her statements are true. Nothing further to add
[2017-09-10] MEDS: Apixaban 5 MG TAB PO SCH (08:41)
[2017-09-10] MEDS: Flecainide 50 MG TAB PO SCH (08:42)
[2017-09-10] MEDS: DULoxetine 60 MG CAP PO SCH (08:43)
[2017-09-10] MEDS: HumaLOG 300 UNITS/3 ML VIAL SC SCH ×2 (08:47→12:40)
[2017-09-10] MEDS: Insulin Detemir 100 UNITS/ML 40 UNITS in Pre-Filled Syringe 1 EACH SC SCH (08:48)
--- NOTE | 2017-09-10 09:03 | PDOC.PN ---
- Subjective Encounter Start Date: 09/10/17 Encounter Start Time: 09:02 Ms. Emmanuel was seen today in follow-up. She is feeling a bit better today. She says her shipment of Fausto arrives today - Objective Resuscitation Status: Resuscitation Status FULL:Full Resuscitation MAR Reviewed: Yes Vital Signs & Weight: Vital Signs (12 hours) Temp Pulse Resp BP BP Pulse Ox 09/10/17 04:07 98.9 F 65 18 126/79 99 09/10/17 00:17 97.5 F L 62 18 146/50 H 92 L Weight Weight 337 lb 4.916 oz Most Recent Monitor Data Heart Rate from ECG 70 NIBP 101/57 NIBP BP-Mean 76 Respiration from ECG 18 SpO2 93 I&O: 09/09/17 09/10/17 09/11/17 06:59 06:59 06:59 Intake Total 700 2382 Output Total 1500 Balance 700 882 Result Diagrams: 09/09/17 05:29 09/10/17 05:35 Additional Labs: Accuchecks 09/10/17 09/09/17 09/09/17 05:59 21:59 16:26 POC Glucose 159 H 125 H 115 H 09/09/17 10:43 POC Glucose 222 H Phys Exam - Physical Examination HEENT: PERRLA Respiratory: no wheezing, no rales, no rhonchi, clear to auscultation bilateral Cardiovascular: RRR, no significant murmur Gastrointestinal: soft, non-tender, positive bowel sounds Musculoskeletal: edema present trace pedal edema Dx/Plan (1) DKA (diabetic ketoacidoses) Code(s): E13.10 - OTH DIABETES MELLITUS WITH KETOACIDOSIS WITHOUT COMA Status : Acute (2) Hyponatremia Code(s): E87.1 - HYPO-OSMOLALITY AND HYPONATREMIA Status: Acute (3) DM type 2 (diabetes mellitus, type 2) Status: Acute (4) Hypertension Code(s): I10 - ESSENTIAL (PRIMARY) HYPERTENSION Status: Acute (5) Hereditary angioedema Code(s): D84.1 - DEFECTS IN THE COMPLEMENT SYSTEM Status: Chronic (6) Acute on chronic kidney failure Code(s): N17.9 - ACUTE KIDNEY FAILURE, UNSPECIFIED; N18.9 - CHRONIC KIDNEY DISEASE, UNSPECIFIED Status: Acute (7) Atrial fibrillation Code(s): I48.91 - UNSPECIFIED ATRIAL FIBRILLATION Status: Acute - Plan * HAE- acute flair is improving * DKA- resolved * Acute on chronic kidney injury has resolved * She is stable for discharge home today.
--- NOTE | 2017-09-10 14:35 | DIS ---
DATE OF ADMISSION: 09/05/2017 DATE OF DISCHARGE: 09/10/2017 PRIMARY CARE PHYSICIAN: Chito Perera MD DISCHARGE DISPOSITION: Home. DISCHARGE DIAGNOSES: 1. Hereditary angioedema flare. 2. Diabetic ketoacidosis, type 2. 3. Acute renal failure, resolved. 4. History of atrial fibrillation on chronic anticoagulation. 5. Diabetes mellitus, type 2. DISCHARGE MEDICATIONS: She is to continue the same medications that she had been taken on admission and these include Seroquel 100 mg at bedtime, Detemir 40 units twice a day, Firazyr 30 mg subcu as ne eded, Dilaudid 4 mg p.o. q.4 hours, flecainide 100 mg twice a day, Nexium 40 mg twice daily, Cymbalta 60 mg daily, diltiazem 120 mg daily, danazol 50 mg daily, clonazepam 1 mg at bedtime, vitamin D3 of 2000 units daily, Berinert which is C1 esterase inhibitor 20 international units per kilogram as dire cted and Eliquis 5 mg twice a day. CODE STATUS: FULL CODE. ALLERGIES: CHRISTIANO INHIBITORS, ASPIRIN, PLAVIX, IODINE, TRAMADOL, SHELLFISH and ANTI-INFLAMMATORY MEDICA TIONS. HOSPITAL COURSE: Ms. Emmanuel is a pleasant 37-year-old female that presented to the emergency room w ith feeling of throat swelling. She was also stated that she had not received her medications the Be rinert through the mail. She was admitted and administered FFP. She was also placed on IV steroids. As a complication to the IV steroids, she developed diabetic ketoacidosis, which was treated. She also entered the hospital in acute renal failure. This responded to IV fluids and treatment of the e levated blood glucose and her creatinine returned back to her baseline level at 1.02 and her creatini ne had gotten as high as 2.5. She did require another administration of FFP during her hospital stay and after the final FFP administration, her symptoms improved and she was able to be discharged home.
[2017-09-10 15:40] VITALS: BP 114/63; TEMP 96.9
== END 2017-09-10 17:28 | disposition home or self-care (01) | DRG 642 ==
LOC: ERS 22:11 → CCU 09-05 00:12 → T4-A 09-05 16:57 → IMCU/EMU 09-06 18:32
PROVIDERS: ADMIT Hospitalist; ATTEND Hospitalist
PROC: 06H033Z Insertion of Infusion Device into Inferior Vena Cava, Percutaneous Approach (ICD-10-PCS; principal; 2017-09-06)
PROC: B549ZZA Ultrasonography of Inferior Vena Cava, Guidance (ICD-10-PCS; 2017-09-06)
DX: D84.1 Defects in the complement system (principal); N17.9 Acute kidney failure, unspecified; E09.10 Drug or chemical induced diabetes mellitus with ketoacidosis without coma; E87.1 Hypo-osmolality and hyponatremia; Z68.42 Body mass index [BMI] 45.0-49.9, adult; E87.5 Hyperkalemia; I48.91 Unspecified atrial fibrillation; D64.9 Anemia, unspecified; Z86.73 Personal history of transient ischemic attack (TIA), and cerebral infarction without residual deficits; Z86.718 Personal history of other venous thrombosis and embolism; Z95.0 Presence of cardiac pacemaker; J38.3 Other diseases of vocal cords; Z79.01 Long term (current) use of anticoagulants; T38.0X5A Adverse effect of glucocorticoids and synthetic analogues, initial encounter; E66.01 Morbid (severe) obesity due to excess calories; G89.29 Other chronic pain; I12.9 Hypertensive chronic kidney disease with stage 1 through stage 4 chronic kidney disease, or unspecified chronic kidney disease; N18.9 Chronic kidney disease, unspecified
CPT/HCPCS: 36415; 36416; 36430; 71045; 80048; 85014; 85018; 85049; 86850; 86900; 86901; 94640; 96374; 96375; J1200; J1815; J2920; J7050; P9059; S0028